=== PATIENT | male | born 1985 | race Two or more races ===

== ENCOUNTER 2018-07-12 08:38 | Emergency (ER) | payer OTHER ==
[~2018-07-12] VITALS: Ht 167.6 cm; Wt 99.1 kg
[2018-07-12 08:42] VITALS: BP 146/91; PULSE 79; RESP 18; Ht 167.6 cm; Wt 99.1 kg
--- NOTE | 2018-07-12 09:45 | ERD ---
ER Documentation Chief Complaint Chief Complaint throat pain/fever/chills x 3 days HPI 33-year-old male with no reported past medical or surgical history who presents with 3-day complaint of sore throat, fevers, chills. Has tried cepacol which helped with his symptoms. Also with subjective fevers and has been taking Tylenol and ibuprofen at home. He otherwise denies discharge from mouth, shortness of breath, cough, nausea, vomiting, diarrhea, urinary symptoms. At time of evaluation patient is nontoxic-appearing with normal triage vital signs. Reports no allergies to medications and otherwise without complaint. ROS All systems reviewed and are negative except as per history of present illness. PMhx/Soc Medical and Surgical Hx: pt denies Medical Hx, pt denies Surgical Hx Hx Alcohol Use: No Hx Substance Use: No Hx Tobacco Use: No FmHx Family History: No diabetes, No coronary disease, No other Physical Exam Vitals Vital Signs Date Temp Pulse Resp B/P (MAP) Pulse Ox O2 O2 Flow FiO2 Time Delivery Rate 07/12/18 97.3 79 18 146/91 98 08:42 (109) Physical Exam I have reviewed the triage vital signs. Const: Well nourished, well developed, appears stated age Eyes: PERRL, no conjunctival injection HENT: NCAT, Neck supple without meningismus, throat with mild erythema and mild swelling but no exudates, no petechiae, no tender lymphadenopathy CV: RRR, Warm, well-perfused extremities RESP: CTAB, Unlabored respiratory effort GI: soft, non-tender, non-distended, no masses MSK: No gross deformities appreciated Skin: Warm, dry. No rashes Neuro: grossly non focal Psych: Appropriate mood and affect. Procedures/MDM 33 yo male pt presenting with worsening of sore throat with reassuring exam. No history of immunocompromise. Nontoxic appearance. Patient euvolemic with no trismus and no airway compromise. Able to tolerate PO. 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 Centor negative for strep. We will discharge with antibiotic Rx. Patient instructed only to fill medication prescription if symptoms not improving several days. Plan to DC home with prompt outpatient PCP follow up; return precautions discussed DISPOSITION PLAN: We discussed follow up with the patient's primary care doctor within 24 to 48 hours. Patient counseled regarding my diagnostic impression and care plan. Prior to discharge all questions answered. Pt agrees with treatment plan and understands strict return precautions. Precautionary instructions provided including instructions to return to the ER if not improving or for any worsening or changing symptoms or concerns. Departure Condition: Stable Patient Instructions: Self-Care for Sore Throats VALENTINE VALDES PA-C Jul 12, 2018 09:45
[2018-07-12] MEDS ORDERED: AZIT250T PO (09:48)
== END 2018-07-12 09:57 | disposition home or self-care (01) ==
LOC: FTE 08:38
DX: J02.9 Acute pharyngitis, unspecified (principal)
CPT/HCPCS: 99283